=== PATIENT | male | born 1990 | race Caucasian/White ===

== ENCOUNTER 2017-04-24 17:15 | Emergency (ER) | payer BC ==
--- NOTE | 2017-04-24 18:09 | UC ---
FLU HPI - HPI Summary HPI Summary: 27 YEAR OLD MALE PRESENTS WITH COMPLAINS OF SINUS CONGESTION AND HEADACHE. - History of Current Complaint Stated Complaint: FLU SXS Time Seen by Provider: 04/24/17 18:09 Hx Obtained From: Patient Onset/Duration: Sudden Onset Severity Currently: Moderate Severity Initially: Moderate Pain Scale Used: 0-10 Numeric - 5 Associated Signs & Symptoms: Positive: Negative - Allergy/Home Medications Allergies/Adverse Reactions: Allergies Allergy/AdvReac Type Severity Reaction Status Date / Time No Known Allergies Allergy Verified 04/24/17 18:14 PMH/Surg Hx/FS Hx/Imm Hx Previously Healthy: Yes - Surgical History Surgical History: Yes Surgery Procedure, Year, and Place: Left Hand IV Infiltration, ~ [place] - Family History Known Family History: Positive: None - Social History Alcohol Use: Occasionally Substance Use Type: None Smoking Status (MU): Never Smoked Tobacco - Immunization History Most Recent Influenza Vaccination: January 2015 Review of Systems Constitutional: Negative Skin: Negative Eyes: Negative ENT: Sore Throat, Ear Ache, Nasal Discharge, Sinus Congestion, Sinus Pain/ Tenderness Respiratory: Cough Cardiovascular: Negative Gastrointestinal: Negative Genitourinary: Negative Motor: Negative Neurovascular: Negative Musculoskeletal: Negative Neurological: Negative Psychological: Negative All Other Systems Reviewed And Are Negative: Yes Physical Exam Triage Information Reviewed: Yes Vital Signs Reviewed: Yes Eye Exam: Normal ENT: Positive: Nasal congestion, Nasal drainage Dental Exam: Normal Neck exam: Normal Neck: Positive: 1 Respiratory: Positive: Decreased breath sounds Cardiovascular Exam: Normal Abdominal Exam: Normal Musculoskeletal Exam: Normal Neurological Exam: Normal Psychological Exam: Normal Skin Exam: Normal Flu Course/Dx - Differential Dx/Diagnosis Provider Diagnoses: SINUSITIS Discharge - Discharge Plan Condition: Stable Disposition: HOME Prescriptions: Albuterol HFA INHALER* [Ventolin HFA Inhaler*] 1 puff INH Q6H PRN #1 mdi PRN Reason: Wheezing Amoxicillin/Clavulanate TAB* [Augmentin TAB 875*] 875 mg PO BID #20 tab Guaifenesin-Codeine [Cheratussin AC] 1 teasp PO BEDTIME PRN #120 ml MDD 5 ml PRN Reason: Cough LoraTADine TAB(NF) [Claritin 10 MG TAB(NF)] 10 mg PO DAILY #30 tab Patient Education Materials: Sinusitis (ED) Forms: *Work Release Referrals: No Primary Care Phys,NOPCP [Primary Care Provider] -
[2017-04-24 18:18] VITALS: BP 135/86
== END 2017-04-24 18:53 | disposition home or self-care (01) ==
LOC: UCCORT 17:15
DX: J32.9 Chronic sinusitis, unspecified (principal)
CPT/HCPCS: 87502; 99212; G0463

== ENCOUNTER 2018-05-22 19:56 | Emergency (ER) | payer BC ==
[2018-05-22 20:15] VITALS: BP 140/76
--- NOTE | 2018-05-22 20:23 | UC ---
UC General HPI - HPI Summary HPI Summary: Began yesterday with a headache. today pt c/o fever and chills plus body aches. - History of Current Complaint Chief Complaint: UCGeneralIllness Stated Complaint: STERN,CHILLS,BODY ACHES Time Seen by Provider: 05/22/18 20:00 Hx Obtained From: Patient Timing: Constant Pain Intensity: 7 Associated Signs & Symptoms: Negative: Abdominal Pain, Cough, Diarrhea, Vomiting - Allergy/Home Medications Allergies/Adverse Reactions: Allergies Allergy/AdvReac Type Severity Reaction Status Date / Time No Known Allergies Allergy Verified 05/22/18 20:15 Home Medications: Home Medications NK [No Home Medications Reported] 05/22/18 [History Confirmed 05/22/18] PMH/Surg Hx/FS Hx/Imm Hx Previously Healthy: Yes - Surgical History Surgical History: Yes Surgery Procedure, Year, and Place: Left Hand IV Infiltration, ~ - Family History Known Family History: Positive: None - Social History Alcohol Use: Occasionally Substance Use Type: None Smoking Status (MU): Never Smoked Tobacco - Immunization History Most Recent Influenza Vaccination: January 2015 Review of Systems All Other Systems Reviewed And Are Negative: Yes Constitutional: Positive: Fever, Chills Skin: Positive: Negative Eyes: Positive: Negative ENT: Positive: Negative Respiratory: Positive: Negative Cardiovascular: Positive: Negative Gastrointestinal: Positive: Negative Genitourinary: Positive: Negative Motor: Positive: Negative Neurovascular: Positive: Negative Musculoskeletal: Positive: Myalgia Neurological: Positive: Headache Psychological: Positive: Negative Physical Exam Triage Information Reviewed: Yes Appearance: Ill-Appearing - but non toxic Vital Signs: Initial Vital Signs Temp 99.5 F 05/22/18 20:13 Pulse 110 05/22/18 20:13 Resp 16 05/22/18 20:13 BP 140/76 05/22/18 20:13 Pulse Ox 99 05/22/18 20:13 Vital Signs Reviewed: Yes Eyes: Positive: Conjunctiva Clear ENT: Positive: Pharynx normal, TMs normal. Negative: Nasal drainage Neck: Positive: Supple, Nontender, No Lymphadenopathy Respiratory: Positive: Lungs clear, Normal breath sounds Cardiovascular: Positive: No Murmur, Brisk Capillary Refill, Tachycardia - mild Abdomen Description: Positive: Nontender, No Organomegaly, Soft Bowel Sounds: Positive: Present Musculoskeletal: Positive: ROM Intact Neurological: Positive: Alert Psychological: Positive: Age Appropriate Behavior Skin Exam: Other - Flushed and warm Skin: Negative: Rashes Diagnostics - Laboratory Diagnostic Studies Completed/Ordered: rapid flu=negative Course/Dx - Course Course Of Treatment: no indication for antibiotic treatment - Differential Dx - Multi-Symptom Differential Diagnoses: Other - influenza/viral syndrom - Diagnoses Provider Diagnosis: Influenza-like illness Discharge - Sign-Out/Discharge Documenting (check all that apply): Patient Departure All imaging exams completed and their final reports reviewed: No Studies - Discharge Plan Condition: Stable Disposition: HOME Patient Education Materials: Influenza (ED) Forms: *Work Release Referrals: SAMUEL Raines [Medical Doctor] - 5 Days - Billing Disposition and Condition Condition: STABLE Disposition: Home
[2018-05-22 20:34] LABS: Influenza A Molecular NEGATIVE (Negative); Influenza B Molecular NEGATIVE (Negative)
== END 2018-05-22 20:40 | disposition home or self-care (01) ==
LOC: UCCORT 19:56
DX: J11.1 Influenza due to unidentified influenza virus with other respiratory manifestations (principal)
CPT/HCPCS: 99211; G0463